=== PATIENT | male | born 1990 | race Caucasian/White ===

== ENCOUNTER 2016-10-19 15:03 | Emergency (ER) | payer BC ==
[~2016-10-19] VITALS: Ht 167.6 cm; Wt 86.7 kg
[2016-10-19 15:08] VITALS: TEMP 36.6; Ht 167.6 cm; Wt 86.7 kg
[2016-10-19 15:47] LABS: BASO % 0.9 %; BASO ABS # 0.08 K/uL (0-0.2); COMPLETE YES; EOS % 10.4 %; HEMATOCRIT 43.2 % (42-52); IG% 0.4 %; LYMPH % 24.5 %; LYMPH ABS # 2.08 K/uL (1.2-3.4); MEAN CELL VOLUME 82.9 fL (80-100); MEAN CORPUSCULAR HEMOGLOBIN 30.1 pg (25-34); MEAN CORPUSCULAR HGB CONC 36.3 g/dl (32-36); MEAN PLATELET VOLUME 9.3 fL (7.4-10.4); MONO % 10.7 %; NEUT % 53.1 %; PLATELET COUNT 331 K/uL (130-400); RED BLOOD COUNT 5.21 M/uL (4.7-6.1)
[2016-10-19 16:04] LABS: BUN/CREATININE RATIO 11.7 (10-20); CALCIUM 8.9 mg/dl (8.5-10.1); CREATININE 0.96 mg/dl (0.60-1.40); PARTIAL THROMBOPLASTIN RATIO 1.1; POTASSIUM 3.9 mmol/L (3.5-5.1); PROTHROMBIN TIME (PATIENT) 10.8 SECONDS (9.0-12.0)
--- NOTE | 2016-10-19 16:35 | EMERGENCY ROOM VISIT NOTE ---
History First contact with patient: 15:09 Chief Complaint: GI ASSESSMENT Stated Complaint: BLOOD IN STOOL Nursing Triage Summary: Pt states he had red blood in his stool today. Denies abd pain. History of Present Illness The patient is a 26 year old male who presents to the Emergency Room with complaints of blood in his stool. The patient reports that he noticed the blood late morning when having a bowel movement. He reports pain with bowel movements the past few days. He reports that the blood is darker red in appearance, and mixed into the stool. It does not look like tar. The patient denies any recent abdominal pain. He denies history of peptic ulcer disease, ulcerative colitis or other GI disease. He also denies any family history of the same. He denies any other symptoms at this time, and is currently painless. He denies any recent significant alcohol or NSAIDs use. Review of Systems 10 system review was performed and was negative except for pertinent positives and negatives as indicated in history of present illness Past Medical/Surgical History Medical Problems: (1) No significant past medical history Surgical Problems: (1) History of tonsillectomy and adenoidectomy Family History Unremarkable Social History Smoking Status: Never Smoker Alcohol Use: occasionally Marital Status: single Occupation Status: employed Current/Historical Medications No Active Prescriptions or Reported Meds Physical Exam Vital Signs Date Time Temp Pulse Resp B/P (MAP) Pulse Ox O2 Delivery O2 Flow Rate FiO2 10/19/16 15:08 36.6 77 16 128/83 98 Room Air Physical Exam CONSTITUTIONAL: Healthy and well nourished. Alert and oriented X 3 with positive affect. HEENT: Normocephalic, atraumatic. Pupils equal, round and reactive. No scleral icterus or conjunctival pallor. OROPHARYNX: No tonsillar hypertrophy or exudates. Mucous membranes are moist. NECK: Full active range of motion without discomfort. RESPIRATORY: Clear to auscultation bilaterally with no wheezing, crackles, rhonchi or stridor. CARDIOVASCULAR: Regular rate and rhythm with no murmurs, rubs or gallops. GASTROINTESTINAL: Bowel sounds present in all quadrants. Patient has no abdominal tenderness to palpation. No rigidity, guarding or rebound. Negative CVA tenderness. No obvious hepatosplenomegaly. Digital rectal exam does not show any significant stool within the rectal vault. Stool Hemoccult was negative. There were no external hemorrhoids, or obvious internal hemorrhoids. MUSCULOSKELETAL: Full range of motion of all joints without discomfort. INTEGUMENTARY: No rash or other significant dermatologic conditions noted. HEMATOLOGIC: No ecchymosis or petechiae. NEUROLOGIC: No focal neurologic deficits noted. Medical Decision & Procedures Laboratory Results 10/19/16 15:35 Red Blood Count 5.21, Mean Corpuscular Volume 82.9, Mean Corpuscular Hemoglobin 30.1, Mean Corpuscular Hemoglobin Concent 36.3, Mean Platelet Volume 9.3, Neutrophils (%) (Auto) 53.1, Lymphocytes (%) (Auto) 24.5, Monocytes (%) (Auto) 10.7, Eosinophils (%) (Auto) 10.4, Basophils (%) (Auto) 0.9, Neutrophils # (Auto ) 4.52, Lymphocytes # (Auto) 2.08, Monocytes # (Auto) 0.91, Eosinophils # (Auto ) 0.88, Basophils # (Auto) 0.08 10/19/16 15:35 Test 10/19/16 15:35 White Blood Count 8.50 K/uL (4.8-10.8) Red Blood Count 5.21 M/uL (4.7-6.1) Hemoglobin 15.7 g/dL (14.0-18.0) Hematocrit 43.2 % (42-52) Mean Corpuscular Volume 82.9 fL (80-100) Mean Corpuscular Hemoglobin 30.1 pg (25-34) Mean Corpuscular Hemoglobin Concent 36.3 g/dl (32-36) Platelet Count 331 K/uL (130-400) Mean Platelet Volume 9.3 fL (7.4-10.4) Neutrophils (%) (Auto) 53.1 % Lymphocytes (%) (Auto) 24.5 % Monocytes (%) (Auto) 10.7 % Eosinophils (%) (Auto) 10.4 % Basophils (%) (Auto) 0.9 % Neutrophils # (Auto) 4.52 K/uL (1.4-6.5) Lymphocytes # (Auto) 2.08 K/uL (1.2-3.4) Monocytes # (Auto) 0.91 K/uL (0.11-0.59) Eosinophils # (Auto) 0.88 K/uL (0-0.5) Basophils # (Auto) 0.08 K/uL (0-0.2) RDW Standard Deviation 37.4 fL (36.4-46.3) RDW Coefficient of Variation 12.3 % (11.5-14.5) Immature Granulocyte % (Auto) 0.4 % Immature Granulocyte # (Auto) 0.03 K/uL (0.00-0.02) Prothrombin Time 10.8 SECONDS (9.0-12.0) Prothromb Time International Ratio 1.0 (0.9-1.1) Activated Partial Thromboplast Time 27.5 SECONDS (21.0-31.0) Partial Thromboplastin Ratio 1.1 Anion Gap 5.0 mmol/L (3-11) Est Creatinine Clear Calc Drug Dose 120.3 ml/min Estimated GFR () 125.9 Estimated GFR (Non- 108.7 BUN/Creatinine Ratio 11.7 (10-20) Calcium Level 8.9 mg/dl (8.5-10.1) Total Bilirubin 0.9 mg/dl (0.2-1) Direct Bilirubin 0.2 mg/dl (0-0.2) Aspartate Amino Transf (AST/SGOT) 18 U/L (15-37) Alanine Aminotransferase (ALT/SGPT) 27 U/L (12-78) Alkaline Phosphatase 67 U/L (45-117) Total Creatine Kinase 210 U/L (39-308) Total Protein 7.9 gm/dl (6.4-8.2) Albumin 4.2 gm/dl (3.4-5.0) The above labs were reviewed and were grossly normal. ED Course Patient history and physical exam were performed. Nurse's notes were reviewed. Vital signs were reviewed and normal. The patient does not appear in any acute distress. IV access was established, and labs were drawn. Review of labs showed no gross abnormalities. The patient was unable to provide a stool sample, therefore digital rectal exam was performed. I was only able to retrieve a small speck of stool that was smeared on a stool Hemoccult card with a negative Hemoccult result. Urine dip was also normal. At this point, the patient was encouraged to refrain from any GI your 10 such as NSAIDs and alcohol. He was provided contact information for Dr. Magana, television inspector software solutions architect today. He is welcome to return to the emergency department for any profuse bleeding or other concerns. The patient was happy with plan of care, and voiced understanding of all discharge instructions. Medical Decision Patient presents to the emergency department with complaint of darker blood mixed into the stool. This is most suggestive of a middle to upper GI bleed. Patient did not have any stool within the rectal vault, and a small amount of stool that was collected was Hemoccult negative. The patient's abdominal exam is benign. The patient is hemodynamically stable. The patient has no leukocytosis or fever. Blood Pressure Screening Patient's blood pressure: Normal blood pressure Impression Primary Impression: GI bleed Departure Information Prescriptions No Active Prescriptions or Reported Meds Referrals No Doctor, Assigned (PCP) Patient Instructions [facility] Problem Qualifiers Primary Impression: GI bleed GI bleed type/associated pathology: unspecified gastrointestinal hemorrhage type Qualified Codes: K92.2 - Gastrointestinal hemorrhage, unspecified
[2016-10-19 16:43] VITALS: BP 119/77; PULSE 86; O2SAT 98
== END 2016-10-19 16:44 | disposition home or self-care (01) ==
LOC: C.EDB 15:05
DX: K92.2 Gastrointestinal hemorrhage, unspecified (principal)